=== PATIENT | female | born 1980 | race Two or more races ===

== ENCOUNTER → 2020-03-16 | Outpatient (CLI) | payer OTHER ==
[~2020-03-16] MED LIST: NONE PER PT
[2020-03-16 16:23] LABS: BASOPHILS % (AUTO) 1 % (0-1); EOSINOPHILS % (AUTO) 1 % (1-7); LYMPHOCYTES % (AUTO) 33 % (22-44); MEAN CORPUSCULAR HEMOGLOBIN 30.9 pg (27.0-34.8); MEAN CORPUSCULAR HGB CONC 33.4 g/dL (32.4-35.8); MEAN PLATELET VOLUME 9.2 fL (7.4-10.4); MONOCYTES % (AUTO) 6 % (2-9); NEUTROPHILS % (AUTO) 59 % (42-75); PLATELET COUNT 295 x10^3/uL (130-400); RED BLOOD COUNT 4.42 x10^6/uL (3.82-5.3)
[2020-03-16 16:24] LABS: MD NO
[2020-03-16 16:29] LABS: ANION GAP 7 mmol/L (5-15); CALCIUM 8.9 mg/dL (8.5-10.1); CHLORIDE 109 mmol/L (98-107); CREATININE 1.19 mg/dL (0.55-1.02)
== END | disposition home or self-care (01) ==
LOC: STAR 15:26
PROVIDERS: ATTEND Obstetrics & Gynecology Maternal & Fetal Medicine
DX: Z01.812 Encounter for preprocedural laboratory examination (principal); N92.0 Excessive and frequent menstruation with regular cycle; N93.8 Other specified abnormal uterine and vaginal bleeding; Z20.822 Contact with and (suspected) exposure to COVID-19
CPT/HCPCS: 80048; 84702; 85025; 87635

== ENCOUNTER 2020-04-14 14:34 | Day surgery (SDC) | payer OTHER ==
[~2020-04-14] VITALS: Ht 149.9 cm; Wt 68.9 kg
[2020-04-14 15:12] VITALS: BP 119/75
[2020-04-14] MEDS ORDERED: CHLORHEXIDINE 15 ML UDC ONE (15:20)
[2020-04-14 15:28] LABS: HCG UR SG 1.017 (1.003-1.030)
[2020-04-14] MEDS ORDERED: LACTATED RINGERS 1,000 ML IV SCH (15:30)
[2020-04-14] MEDS ORDERED: CHLORHEXIDINE 15 ML UDC MM ONE (15:30)
[2020-04-14] MEDS ORDERED: FENTANYL PF 100 MCG/2ML ONE (15:42)
[2020-04-14] MEDS ORDERED: MIDAZOLAM 1 MG/ML, 2ML ONE (15:42)
[2020-04-14] MEDS ORDERED: SILVER NITRATE STICK TP ONE (15:43)
[2020-04-14] MEDS ORDERED: OXYTOCIN 10 UNITS/ML, 1ML ONE (15:43)
[2020-04-14] MEDS ORDERED: BUPIVACAINE/PF 0.25% ONE (15:43)
[2020-04-14] MEDS ORDERED: EPINEPHRINE 1 MG/ML, 1ML ONE (15:43)
[2020-04-14] MEDS ORDERED: MISOPROSTOL 200 MCG TABLET ONE (15:43)
[2020-04-14] MEDS ORDERED: METHYLERGONOVINE 0.2 MG/ML IM ONE (15:44)
[2020-04-14] MEDS ORDERED: VASOPRESSIN 20 UNIT/ML, 1ML ONE (15:44)
[2020-04-14] MEDS ORDERED: ONDANSETRON 2MG/ML, 2ML ONE (16:40)
[2020-04-14] MEDS ORDERED: DEXAMETHASONE 4 MG/ML, 1ML ONE (16:40)
[2020-04-14] MEDS ORDERED: PROPOFOL 10 MG/ML, 20ML ONE (16:40)
[2020-04-14] MEDS ORDERED: KETOROLAC 30 MG/1 ML ONE (16:40)
[2020-04-14] MEDS ORDERED: CEFAZOLIN 1,000 MG ONE (16:40)
[2020-04-14] MEDS ORDERED: OXYcodone 5 MG/5 ML ORAL.SOL UDC PO PRN (17:30)
[2020-04-14] MEDS ORDERED: LORazepam 2 MG/ML, 1ML IVPush PRN (17:30)
[2020-04-14] MEDS ORDERED: HYDROmorphone 1 MG/ML, 1ML INJ IVPush PRN (17:30)
[2020-04-14] MEDS ORDERED: FENTANYL PF 100 MCG/2ML IV PRN (17:30)
[2020-04-14] MEDS ORDERED: METHOCARBAMOL 1,000 MG in DEXTROSE 5% 100 ML IV PRN (17:30)
[2020-04-14] MEDS ORDERED: ACETAMINOPHEN 325 MG TABLET PO PRN (17:30)
[2020-04-14] MEDS ORDERED: PROMETHAZINE 25 MG/ML, 1ML IVPush PRN (17:30)
[2020-04-14] MEDS ORDERED: hydrALAzine 20 MG/ML, 1ML IV PRN (17:30)
[2020-04-14] MEDS ORDERED: ONDANSETRON 2MG/ML, 2ML IVPush PRN (17:30)
[2020-04-14] MEDS ORDERED: LABETALOL 5MG/ML, 20ML IV PRN (17:30)
[2020-04-14] MEDS ORDERED: OXYcodone 5 MG/5 ML ORAL.SOL UDC ONE (18:03)
== END 2020-04-14 19:00 | disposition home or self-care (01) ==
LOC: OUT 14:34
PROVIDERS: ATTEND Obstetrics & Gynecology Maternal & Fetal Medicine
DX: N92.0 Excessive and frequent menstruation with regular cycle (principal); Z79.899 Other long term (current) drug therapy; Z88.0 Allergy status to penicillin; Z83.3 Family history of diabetes mellitus
CPT/HCPCS: 58563; 81025; J0171; J0690; J1100; J1885; J2250; J2405; J2704; J3010; J7120; J2210; J2590